=== PATIENT | male | born 1955 | race Caucasian/White ===

== ENCOUNTER 2019-10-28 08:56 | Inpatient (IN) | payer MEDICARE, OTHER, SELFPAY ==
[2019-10-28] VITALS (8 sets, daily range): BP systolic 134–166; BP diastolic 57–72; PULSE 71–96; RESP 16–20; TEMP 36.7–37; O2SAT 97–100
--- NOTE | 2019-10-28 | ECHO_ITS ---
Patient Info Name: Faustino Velásquez Age: 64 years : 1955 Gender: Male Ht: 66 in Wt: 211 lbs BSA: 2.15 m2 HR: 98 bpm BP: 140 / 71 mmHg Heart Rhythm: Sinus Rhythm Technical Quality: Good Exam Date: 10/28/2019 4:25 PM Exam Location: [facility] Pulmonary Exam Room: 315 Patient Status: Inpatient Admit Date: 10/28/2019 Staff Ordering Physician: Susan Otoole NP Punch Machine Operator: Julianna Amaral RCS Attending Provider: Miki Gatica MD Referring Physician: Xiang CENTENO; Exam Type: CA echo doppler w bubble study Study Info Indications - focal weakness Complete two-dimensional, color flow and Doppler transthoracic echocardiogram is performed with agitated saline. Contrast/Agitated Saline Contrast/Ag. Saline: Agitated Saline Amount: 20.00 ml Administered By: Barrett Foss RN Existing IV Access: Yes IV Access Condition: patent with no signs of infiltration Summary 1. Left ventricular systolic function is normal, estimated at >70%. 2. There is upper limits normal left ventricular wall thickness. 3. The left ventricular diastolic function is normal. 4. Right atrial chamber dimension is mildly enlarged. 5. There is no aortic valve stenosis. 6. There is mild mitral valve regurgitation. 7. The mitral valve has thickened leaflets with focal calcification of the anterior leaflet.. 8. There is mild tricuspid valve regurgitation. 9. No pulmonary hypertension, estimated pulmonary arterial systolic pressure is 32 mmHg. 10. No intracardiac shunt with injection of agitated saline with and without Valsalva. Recommendations * Consider transesophageal echocardiogram if clinically indicated. Left Ventricle Left ventricular chamber dimension is normal. Left ventricular systolic function is normal, estimated at >70%. There is upper limits normal left ventricular wall thickness. The left ventricular diastolic function is normal. Right Ventricle Right ventricular chamber dimension is normal. Right ventricular systolic function is normal. Left Atria Left atrial chamber dimension is normal. Right Atria Right atrial chamber dimension is mildly enlarged. Atrial Septum No intracardiac shunt with injection of agitated saline with and without Valsalva. Aortic Valve The aortic valve is not well visualized. There is no aortic valve stenosis. There is trace aortic valve regurgitation. Pulmonic Valve The pulmonic valve is not well visualized. Mitral Valve The mitral valve has thickened leaflets with focal calcification of the anterior leaflet.. There is mild mitral valve regurgitation. The mitral valve annulus is mildly calcified. Tricuspid Valve The tricuspid valve leaflets are normal. There is mild tricuspid valve regurgitation. No pulmonary hypertension, estimated pulmonary arterial systolic pressure is 32 mmHg. Pericardium/Pleural The pericardium appears normal. There is trivial pericardial effusion. Inferior Vena Cava Normal inferior vena cava with >50% collapse upon inspiration consistent with normal right atrial pressure, 5 mmHg. Aorta The aortic root size at the sinus of Valsalva is normal. There is mild aortic atherosclerosis. Left Ventricular Outflow Tract Name Value Normal
--- NOTE | ~2019-10-28 | US_ITS ---
EXAMINATION: US renal BI DATE: 10/28/2019 15:51 INDICATION: Acute kidney injury. TECHNIQUE: Multiple ultrasound grayscale images of the kidneys were obtained. COMPARISON: Lumbar spine MRI 02/15/2013 FINDINGS: The right kidney measures 10.3 x 5.9 x 5.7 cm. The left kidney measures 12.6 x 5.6 x 5.2 cm. The kidn eys demonstrate normal parenchymal echogenicity. There is a 9 mm hypoechoic mass in left kidney. Ther e is no hydronephrosis. The bladder is normal. IMPRESSION: 1. Normal kidney sizes. No hydronephrosis. 2. 9 mm left kidney mass, which may be a cyst or less likely a solid neoplasm. Abdomen CT or MRI with out and with contrast is recommended in 6 months. Reviewed, dictated and finalized at location A. IMPRESSION: 1. Normal kidney sizes. No hydronephrosis. 2. 9 mm left kidney mass, which may be a cyst or less likely a solid neoplasm. Abdomen CT or MRI without and with contrast is recommended in 6 months.
--- NOTE | ~2019-10-28 | US_ITS ---
EXAMINATION: US carotid duplex BI DATE: 10/28/2019 15:54 INDICATION: TIA. Weakness. TECHNIQUE: Grayscale, color Doppler, and pulsed Doppler images of the cervical carotid arteries were obtained. The degree of vessel stenosis is placed in one of the following categories: normal, <50%, 5 0-69%, >=70% but less than near-occlusion, near-occlusion, or total occlusion. Note that percent sten osis relative to normal distal artery lumen diameter is indirectly measured from velocity measurement s as described by Jose, et al. Radiology 2003; 229:340-346. Notes: Normal: Peak systolic velocity <125 centimeters/sec and no plaque <50%. Peak systolic velocity <125 ( EDV <40; ICA/CCA PSV ratio <2.0; used these factors only a tandem lesions or low cardiac output or co ntralateral disease) 50-69 %: PSV 125-230 (EDV 40-100; ratio 2-4) >= 70% but less than near occlusion: PSV greater than 230 (EDV > 100; ratio> 4.0) Near Occlusion: PSV that is variable; markedly narrowed lumen Occlusion: Absent flow on color/spectral Doppler and no lumen on sánchez scale. COMPARISON: None. FINDINGS: RIGHT: The right common carotid artery (CCA) peak systolic velocity (PSV) is 126 cm/s. The right internal ca rotid artery (ICA) PSV is 91 cm/s. The right ICA end-diastolic velocity (EDV) is 22 cm/s. The right I CA/CCA PSV ratio is 0.7. The external carotid artery (ECA) PSV is 135 cm/s. There is antegrade flow i n the right vertebral artery. LEFT: The left CCA PSV is 106 cm/s. The left ICA PSV is 94 cm/s. The left ICA EDV is 22 cm/s. The left ICA/ CCA PSV ratio is 0.9. The ECA PSV is 100 cm/s. There is antegrade flow in the left vertebral artery. IMPRESSION: 1. Less than 50% stenosis in the right internal carotid artery by sonographic criteria. 2. Less than 50% stenosis in the left internal carotid artery by sonographic criteria. Reviewed, dictated and finalized at location A. IMPRESSION: 1. Less than 50% stenosis in the right internal carotid artery by sonographic alka pugh. 2. Less than 50% stenosis in the left internal carotid artery by sonographic ro whittington.
--- NOTE | ~2019-10-28 | MR_ITS ---
EXAMINATION: MR cervical spine wo con DATE: 10/28/2019 15:20 INDICATION: Numbness and tingling in the hand. TECHNIQUE: Magnetic resonance imaging (MRI) of the cervical spine was performed without intravenous c ontrast. Sequences included sagittal T2-weighted FSE, sagittal STIR FSE, sagittal T1-weighted FSE, ax ial MERGE, and axial T2-weighted FSE. COMPARISON: None FINDINGS: Bone alignment is normal. There is mild chronic anterior wedging of T1 vertebral body. Ther e are hemangiomas in C3 and T1. There is mildly decreased disc height at C7-T1. There is increased T2 -weighted signal intensity in the spinal cord on the right at C3-C4. The following disc levels are sp ecifically discussed: C2-C3: The disc does not extend beyond the endplate margin. There is no uncovertebral joint osteoarth ritis. There is mild bilateral facet joint osteoarthritis. There is no neural foraminal stenosis. The re is no central canal stenosis. C3-C4: The disc is bulging. There is mild left uncovertebral joint osteoarthritis. There is mild bila teral facet joint osteoarthritis. There is no neural foraminal stenosis. There is mild central canal stenosis. C4-C5: The disc is bulging. There is mild right uncovertebral joint osteoarthritis. There is mild lef t facet joint osteoarthritis. There is mild bilateral neural foraminal stenosis. There is mild centra l canal stenosis with ventral indentation of the spinal cord. C5-C6: The disc is bulging. There is mild bilateral uncovertebral joint osteoarthritis. There is mild bilateral facet joint osteoarthritis. There is mild bilateral neural foraminal stenosis. There is mo derate central canal stenosis with ventral and dorsal indentation of the spinal cord. C6-C7: The disc is bulging. There is moderate right and mild left uncovertebral joint osteoarthritis. There is mild bilateral facet joint osteoarthritis. There is moderate right and mild left neural for aminal stenosis. There is mild central canal stenosis with ventral indentation of the spinal cord. C7-T1: The disc is bulging. There is mild right and moderate left uncovertebral joint osteoarthritis. There is mild bilateral facet joint osteoarthritis. There is mild left neural foraminal stenosis. Th ere is mild central canal stenosis. IMPRESSION: 1. 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 2. Moderate cervical spondylosis. Reviewed, dictated and finalized at location A.
--- NOTE | ~2019-10-28 | CT_ITS ---
EXAMINATION: CT brain wo con DATE: 10/28/2019 09:45 INDICATION: Left hemiparesis. Slurred speech. TECHNIQUE: Computed tomography (CT) of the head was performed without intravenous contrast. The mA wa s adjusted according to patient size. Iterative reconstruction technique was employed. The dose-lengt h product was 605.33 mGy-cm. COMPARISON: None FINDINGS: There are scattered areas of low attenuation in the cerebral white matter. There is no intr acranial hemorrhage, acute infarction, or abnormal intracranial mass lesion. The ventricles are tenisha l in size. There are likely changes of ocular lens replacement surgeries. The maxillary sinuses are s mall. There is mild mucosal thickening in the ethmoid sinuses. The mastoid air cells are normal. IMPRESSION: 1. Mild nonspecific cerebral white matter disease, which likely represents chronic small vessel ische viviane disease. Reviewed, dictated and finalized at location A. IMPRESSION: 1. Mild nonspecific cerebral white matter disease, which likely represents non destructive evaluation specialist jaci small vessel ischemic disease.
--- NOTE | ~2019-10-28 | MR_ITS ---
EXAMINATION: MR brain/brain stem wo con DATE: 10/28/2019 15:08 INDICATION: Focal weakness. Numbness and tingling in the hand. Transient ischemic attack. TECHNIQUE: Magnetic resonance imaging (MRI) of the brain and brainstem was performed without intraven ous contrast. Sequences included sagittal and axial T1-weighted FSE, axial diffusion-weighted FS EPI, axial T2*-weighted GRE, axial T2-weighted FLAIR Propeller, and axial T2-weighted Propeller. Apparent diffusion coefficient (ADC) maps were created. COMPARISON: Head CT 10/28/2019 FINDINGS: There is no intracranial hemorrhage, acute infarction, or abnormal intracranial mass lesion . There are scattered areas of nonspecific increased T2-weighted signal intensity in the cerebral whi te matter. The ventricles are normal in size. There are likely changes of ocular lens replacement douglas geries. The maxillary sinuses are small. The paranasal sinuses are clear. The mastoid air cells are n ormal. IMPRESSION: 1. Mild nonspecific cerebral white matter disease, which likely represents chronic small vessel ische viviane disease. Reviewed, dictated and finalized at location A. IMPRESSION: 1. Mild nonspecific cerebral white matter disease, which likely represents block handler jaci small vessel ischemic disease.
--- NOTE | 2019-10-28 09:03 | ECG_ITS ---
Measurements Intervals [place] Rate: 67 P: 57 [place]: 156 QRS: 24 QRSD: 104 T: 34 QT: 378 QTc: 400 Interpretive Statements SINUS RHYTHM BORDERLINE R WAVE PROGRESSION, ANTERIOR LEADS BORDERLINE ECG Electronically Signed On 10-28-2019 9:31:51 CDT by Jovanny Mederos D.O.
--- NOTE | 2019-10-28 09:10 | ED.WEAKNESS ---
HPI - Weakness General Chief complaint: Weakness Stated complaint: Weakness Time Seen by Provider: 10/28/19 09:02 History of Present Illness HPI Narrative: Patient presents via EMS with his for left-sided weakness. He woke up this morning and could not use his left arm or his left leg. He was unable to walk to the bathroom. Nothing like this is ever happened to him before. He has a history of hypertension diabetes and hypercholesterolemia. He is recently lost 47 pounds on a keto diet. 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 He spent 3 days out in the sun working on a gazebo and yard work. He has not been sick. He has no pain. He has not yet had his morning medications. He has a history of umbilical hernia, vasectomy, right knee arthroscopy, and 2 cardiac stents. He takes testosterone shots every 2 weeks. Does not smoke, drink alcohol, or do drug. MD Complaint: focal weakness Onset (ago): hour(s) Duration: now resolved Location: LUE and LLE Severity: severe Quality: tingling Exacerbating factors: none Related Data Home Medications Medication Instructions Recorded Confirmed aspirin [[id number]] 10/28/19 atorvastatin 40 mg PO DAILY 10/28/19 10/28/19 carvedilol 25 mg PO Q12H 10/28/19 10/28/19 cyclobenzaprine 10 mg PO HS PRN 10/28/19 10/28/19 glimepiride 2 mg PO DAILY 10/28/19 10/28/19 hydrocodone-acetaminophen 1 tablet PO HS PRN 10/28/19 10/28/19 lisinopril 20 mg PO DAILY 10/28/19 10/28/19 metformin 1,000 mg PO BID 10/28/19 10/28/19 Allergies Allergy/AdvReac Type Severity Reaction Status Date / Time atorvastatin AdvReac Severe Abdominal Verified 10/28/19 09:09 Pain latex AdvReac Itching Verified 10/28/19 09:10 Review of Systems Review of Systems: Narrative: CONSTITUTIONAL: Denies fever, chills, or sweats. EYES: Denies visual changes, redness, or discharge. ENT: Denies rhinorrhea, congestion, sore throat, or otalgia. CARDIOVASCULAR: Denies chest pain, palpitations, or edema. RESPIRATORY: Denies cough or dyspnea. GASTROINTESTINAL: Denies abdominal pain, nausea, vomiting, or diarrhea. GENITOURINARY: Denies dysuria or hematuria. SKIN: Denies rash or itching. MUSCULOSKELETAL: Denies back pain, joint pain, or myalgia. NEUROLOGIC: Denies headache, numbness, or current weakness. PSYCHIATRIC: Denies anxiety or depression. [facility] Past Medical History Medical History (Updated 10/28/19 @ 10:43 by Alice Ordonez MD) Diabetes Hypercholesterolemia Hypertension TIA (transient ischemic attack) Surgical History Surgical History (Updated 10/28/19 @ 09:13 by Alice Ordonez MD) History of arthroscopy of right knee History of heart artery stent History of umbilical hernia repair History of vasectomy Family History Family History (Updated 12/19/13 @ 07:13 by DOCTOR UNKNOWN) Mother Family history of congestive heart failure Other Diabetes mellitus Family history of cardiovascular disease Hypertension Social History Social History (Updated 10/28/19 @ 09:14 by Alice Ordonez MD) Smoking status: Never smoker Alcohol intake: current Substance use: never Gender identity (if verbalized by the patient): Male Exam Narrative: Exam Narrative: GENERAL: Well-appearing, well-nourished, and in no acute distress. Very tanned. Overweight. HEAD: Normocephalic, atraumatic. EYES: PERRLA and EOMI. ENT: Nares clear, no rhinorrhea or epistaxis. Mucous membranes moist. NECK: Supple. CHEST: Clear to auscultation. No respiratory distress. HEART: Regular rate and rhythm. No murmur heard. Normal peripheral pulses. ABDOMEN: Soft, nontender, nondistended, normal active bowel sounds. EXTREMITIES: Normal range of motion. No edema. SKIN: Warm, dry, no rash. NEURO: No focal deficits. Alert and oriented x3. PSYCH: Normal mood and affect. Course Reevaluation(s) Reevaluation #1: Went back to the room and told the patient and his that the head CAT scan came out fine. But I did have to te
[2019-10-28] MEDS: SODIUM CHLORIDE 0.9% IV 1,000 ML 999 ML IV CONT (09:15)
[2019-10-28 09:35] LABS: Basophils Percent Auto 0.4 % (0.2-1.2); Eosinophils Absolute Auto 0.1 K/mm3 (0-0.3); Eosinophils Percent Auto 1.5 % (0-4.4); Hematocrit 45.2 % (42.0-52.0); Immature Granulocyte Absolute 0.02 K/mm3 (0.00-0.031); Immature Granulocyte Percent A 0.2 % (0-0.5); Lymphocytes Absolute Auto 1.14 K/mm3 (0.9-3.2); Lymphocytes Percent Auto 12.8 % (18.3-44.2); Mean Corpuscular HGB Conc 33.2 g/dl (32-36); Mean Corpuscular Hemoglobin 30.7 pg (26-34); Mean Corpuscular Volume 92.4 fl (80-100); Mean Platelet Volume 10.3 fl (7.4-10.4); Monocytes Absolute Auto 0.8 K/mm3 (0.1-0.6); Monocytes Percent Auto 8.6 % (2.6-8.5); Neutrophils Absolute Auto 6.8 K/mm3 (1.3-6.7); Neutrophils Percent Auto 76.5 % (45.5-73.1); Platelet Count Result 276 k/mm3 (150-375); Red Blood Count 4.89 M/mm3 (4.6-6.20); Red Cell Distribution Width 14.6 % (11.5-14.5); White Blood Count 8.9 K/mm3 (4.5-10.0)
[2019-10-28 09:40] LABS: Estimated CRCL calculation 15 ml/min; Estimated Glomerular Filt Rate 12
[2019-10-28 09:44] LABS: INR 0.9; Prothrombin Time 12.2 Seconds (11.1-14.7)
[2019-10-28 09:47] LABS: Alanine Aminotransferase 20 U/L (4-50); Albumin Level 4.5 g/dL (3.5-5.1); Alkaline Phosphatase 113 U/L (38-126); Aspartate Amino Transferase 23 U/L (17-59); Bilirubin,Total 0.5 mg/dL (0.2-1.3); Blood Urea Nitrogen 80 mg/dL (9-20); Calcium 8.8 mg/dL (8.4-10.2); Carbon Dioxide 27 mmol/L (22-30); Chloride 95 mmol/L (98-107); Estimated CRCL calculation 14 ml/min; Estimated Glomerular Filt Rate 11; Glucose 134 mg/dL (75-110); Potassium 4.6 mmol/L (3.4-5.0); Sodium 134 mmol/L (137-145)
[2019-10-28 09:58] LABS: Troponin I < 0.012 ng/mL (0.000-0.034)
[2019-10-28] MEDS: ASPIRIN 81 MG CHEWABLE TABLET 324 MG PO (10:07)
[2019-10-28 11:07] LABS: Creatine Kinase 81 U/L (55-170)
--- NOTE | 2019-10-28 11:49 | PC.NURSE ---
Called to give report and nurse states that she hasn't had time to look at SBAR because she was giving blood. Will call me back when she looks over SBAR
[2019-10-28 11:58] LABS: Add Urine Microscopic? NO; Appearance Urine Clear (Clear); Bacteria Urine Trace /hpf; Bilirubin Urine Negative (Negative); Blood Urine Negative (Negative); Color Urine Straw (Yellow); Glucose Urine UA Negative (Negative); Ketones Urine Negative (Negative); Leukocyte Esterase Ur Negative LEU/UL (Negative); Mucus Urine Rare /lpf; Nitrate Urine Negative (Negative); Protein Urine Negative (Negative); RBC Urine 0-2 /hpf (0-2); Specific Grav Ur 1.009 (1.001-1.035); Urobilinogen Urine Negative mg/dL (<2.0); WBC Urine 0-3 /hpf
[2019-10-28 12:54] LABS: Troponin I < 0.012 ng/mL (0.000-0.034)
--- NOTE | 2019-10-28 13:25 | PM.IMHP ---
H&P: HPI History of Present Illness Chief complaint: TIA/and acute renal failure Narrative: Faustino Velásquez is a 64 year old male has a history of diabetes and hypertension. 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 The patient is on a keto diet and says that he drinks 100 oz of water every day. He stated that he did feel little bit dizzy yesterday thought that maybe he was getting dehydrated so he drink Gatorade. His no previous kidney issues. He states that his blood pressure and blood sugars are under control. He also stated that he has sleep apnea and has been using his CPAP machine. He lost approximately 47 lb on the keto diet. Is taking him a year to lose this weight. He has had to have an adjustment on his CPAP machine. The patient stated that he woke up during the night was diaphoretic and wiped himself often went back to sleep on the couch. When he woke up this morning he stated that his left arm and left leg were flaccid. The patient stated that he fell 2 times trying to get off the character go to his in the bedroom. He did not have any slurred speech or facial droop. The patient stated that he typically takes an aspirin but did not take 1 this morning. He has not taken any of his a.m. meds. Patient's symptoms resolved when he came to the hospital. He is now back at his baseline. His some difficulty speaking or swallowing. He can now move all extremities and walks without difficulty. CT of the brain was read as mild nonspecific cerebral white matter disease, which likely represents chronic small vessel ischemic disease. Patient's sodium was 134. His creatinine 5.0 GFR is 15 BUN is 80. Neurology and nephrology have been consulted. Patient also mentioned that he has had problems at night with some numbness and tingling to his hands and has not been checked for carpal tunnel syndrome or any problems with his neck to RO he does have chronic lower back pain. Date of service 10/28/2019 Review of Systems Review of Systems: All systems reviewed & are unremarkable except as noted in HPI and below Constitutional: Constitutional: Reports as per HPI and Reports no additional constitutional complaints Eyes: Eyes: Reports as per HPI and Reports no additional eye complaints ENT: Reports system reviewed and no additional complaints, except as documented and Reports Normal hearing present Cardiovascular: Cardiovascular: Reports no additional cardiovascular complaints Respiratory: Respiratory: Reports no additional respiratory complaints and Reports no additional respiratory complaints Gastrointestinal: Gastrointestinal: Reports as per HPI and Reports no additional gastrointestinal complaints Musculoskeletal: Musculoskeletal: Reports no additional musculoskeletal complaints Integumentary/Breasts: Skin/Breast: Reports system reviewed and no additional complaints, except as docu and Reports as per HPI Neurologic: Reports system reviewed and no additional complaints, except as documented, Reports as per HPI and Reports Normal hearing present Psychiatric: Psychiatric: Reports no additional psychiatric complaints and Reports as per HPI Endocrine: Endocrine: Reports no additional endocrine complaints Hematologic/Lymphatic: Hematologic/Lymphatic: Reports no additional hematologic/lymphatic complaints Allergic/Immunologic: Allergic/Immunologic: Reports no additional allergic/immunologic complaints [facility] Past Medical History Medical History (Updated 10/28/19 @ 13:37 by Susan Otoole NP) Diabetes Hypercholesterolemia Hypertension STACEY on CPAP TIA (transient ischemic attack) Surgical History Surgical History (Updated 10/28/19 @ 13:42 by Susan Otoole NP) H/O bilateral cataract extraction One I approximately 2-3 years ago and the other eye in February of last year. History of arthroscopy of right knee History of heart artery stent X2 History of umbilical hernia repair History of vas
[2019-10-28 14:59] LABS: Collection Time Urine 24 HOURS
[2019-10-28 15:09] LABS: Urine Cotinine NEGATIVE
[2019-10-28 15:11] LABS: Patient Weight 211 Lbs
[2019-10-28 15:18] LABS: Potassium Urine Random 9.9 meq/L; Sodium Urine Random 26 meq/L
[2019-10-28] MEDS: SODIUM CHLORIDE 0.9% IV 1,000 ML 125 ML IV CONT (15:56)
[2019-10-28] MEDS: carvediloL 25 MG TABLET PO ×2 (15:56→20:53)
--- NOTE | 2019-10-28 17:28 | PM.CNNEP ---
Assessment and Plan Assessment and plan (1) Acute renal failure: Qualifiers: Acute renal failure type: unspecified Qualified Code(s): N17.9 - Acute kidney failure, unspecified Code(s): N17.9 - Acute kidney failure, unspecified Status: Acute Assessment and Plan: The patient has acute kidney injury. He sees his doctor frequently and has never been told of kidney problem so I am assuming that his baseline creatinine is near normal. Ultrasound shows no hydronephrosis. There is some sort of a ?mass? which may be a cyst. Will get MRI down the line. Urine electrolytes are pending. Urinalysis is benign. Most likely this is dehydration. There other causes of kidney failure as well. Normal CK rules out rhabdomyolysis. Glomerulonephritis or interstitial nephritis or possible but unlikely in this scenario. We will see how he does with the fluids. (2) TIA (transient ischemic attack): Code(s): G45.9 - Transient cerebral ischemic attack, unspecified Status: Acute Assessment and Plan: Patient had weakness on the left side. Carotid Dopplers are negative. Brain MRI is unremarkable except small vessel disease. Await echocardiogram. (3) Diabetes: Code(s): E11.9 - Type 2 diabetes mellitus without complications Status: Acute Assessment and Plan: He has borderline diabetes. Follow blood sugars. (4) Hypertension: Qualifiers: Hypertension type: unspecified Qualified Code(s): I10 - Essential (primary) hypertension Code(s): I10 - Essential (primary) hypertension Status: Acute Assessment and Plan: Blood pressure was relatively high on admission. We will get him back on his medications and see how it looks. (5) STACEY on CPAP: Code(s): G47.33 - Obstructive sleep apnea (adult) (pediatric); Z99.89 - Dependence on other enabling machines and devices Status: Chronic Assessment and Plan: He uses a CPAP machine at home. History of Present Illness Reason for Consult Consult date: 10/28/19 Chief Complaint Chief complaint: TIA/and acute renal failure History of Present Illness Narrative: Faustino is a very pleasant 64-year-old gentleman who has a history of borderline diabetes, hypertension, coronary disease status post stents, hyperlipidemia, sleep apnea on CPAP. The patient has had a busy 4 days. 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 He says that he had some lightheadedness when he would bend over and stand up on Monday. Yesterday the patient felt a little bit worse. Today the patient woke up in could not move his left side. He was very weak. The patient called his and son and they helped him to get up. Then they called 911 and brought him to the emergency room. In the ER he was evaluated and found to have a high BUN creatinine so he was admitted given IV fluids and renal consultation was requested. After received some IV fluids in the ambulance, by the time he got to the emergency room, his weakness was better any felt better. Patient has no past history of kidney disease. No bloody urine, foamy urine, kidney stones, or bladder infections. He has never been told of proteinuria or other kidney elements when being followed for his current medical issues. Review of Systems Constitutional: Constitutional: Reports no additional constitutional complaints Eyes: Eyes: Reports no additional eye complaints ENT: Reports system reviewed and no additional complaints, except as documented Cardiovascular: Cardiovascular: Reports no additional cardiovascular complaints Respiratory: Respiratory: Reports no additional respiratory complaints Gastrointestinal: Gastrointestinal: Reports no additional gastrointestinal complaints Genitourinary: Genitourinary: Reports no additional male
[2019-10-28 17:58] LABS: Glucose Point of Care 54 (65-105)
[2019-10-28 17:58] LABS: Glucose Point of Care 92 (65-105)
[2019-10-29] VITALS (12 sets, daily range): BP systolic 130–157; BP diastolic 63–75; PULSE 56–79; RESP 18–20; TEMP 36.4–36.9; O2SAT 95–100
[2019-10-29] MEDS: SODIUM CHLORIDE 0.9% IV 1,000 ML 125 ML IV CONT ×3 (00:03→17:37)
[2019-10-29 00:31] LABS: Glucose Point of Care 127 (65-105)
[2019-10-29 06:31] LABS: Basophils Absolute Auto 0.1 K/mm3 (0.0-0.1); Basophils Percent Auto 0.7 % (0.2-1.2); Eosinophils Absolute Auto 0.2 K/mm3 (0-0.3); Eosinophils Percent Auto 2.2 % (0-4.4); Hematocrit 41.4 % (42.0-52.0); Hemoglobin 13.4 g/dL (14.0-18.0); Immature Granulocyte Absolute 0.02 K/mm3 (0.00-0.031); Immature Granulocyte Percent A 0.3 % (0-0.5); Lymphocytes Absolute Auto 1.96 K/mm3 (0.9-3.2); Lymphocytes Percent Auto 28.4 % (18.3-44.2); Mean Corpuscular HGB Conc 32.4 g/dl (32-36); Mean Corpuscular Hemoglobin 30.3 pg (26-34); Mean Corpuscular Volume 93.7 fl (80-100); Mean Platelet Volume 9.9 fl (7.4-10.4); Monocytes Absolute Auto 0.8 K/mm3 (0.1-0.6); Neutrophils Percent Auto 57.4 % (45.5-73.1); Platelet Count Result 277 k/mm3 (150-375); Red Blood Count 4.42 M/mm3 (4.6-6.20); White Blood Count 6.9 K/mm3 (4.5-10.0)
[2019-10-29 06:40] LABS: Hemoglobin A1C 5.5 % (<5.7)
[2019-10-29 06:59] LABS: Alanine Aminotransferase 17 U/L (4-50); Alkaline Phosphatase 91 U/L (38-126); Aspartate Amino Transferase 19 U/L (17-59); Bilirubin,Total 0.4 mg/dL (0.2-1.3); Blood Urea Nitrogen 68 mg/dL (9-20); CRP < 0.5 mg/dL (<1.0); Calcium 8.4 mg/dL (8.4-10.2); Carbon Dioxide 26 mmol/L (22-30); Chloride 104 mmol/L (98-107); Estimated CRCL calculation 19 ml/min; Estimated Glomerular Filt Rate 16; Glucose 100 mg/dL (75-110); Magnesium 2.2 mg/dL (1.6-2.3); Phosphorus 3.8 mg/dL (2.5-4.5); Potassium 4.4 mmol/L (3.4-5.0); Sodium 139 mmol/L (137-145)
[2019-10-29 08:30] LABS: Glucose Point of Care 97 (65-105)
[2019-10-29] MEDS: ASPIRIN 81 MG ENTERIC TABLET BY MOUTH (09:03)
[2019-10-29] MEDS: GLIMEPIRIDE 2 MG TABLET PO (09:05)
--- NOTE | 2019-10-29 09:55 | PM.PNNEP ---
Progress Note: A&P Assessment and Plan (1) Acute renal failure: Qualifiers: Acute renal failure type: unspecified Qualified Code(s): N17.9 - Acute kidney failure, unspecified Code(s): N17.9 - Acute kidney failure, unspecified Status: Acute Assessment and Plan: The patient has acute kidney injury. It looks like it was caused by dehydration. His creatinine is better with fluids Continue IV fluids for 1 more day. (2) TIA (transient ischemic attack): Code(s): G45.9 - Transient cerebral ischemic attack, unspecified Status: Acute Assessment and Plan: Patient had weakness on the left side. Carotid Dopplers are negative. Brain MRI is unremarkable except small vessel disease. Await echocardiogram. (3) Diabetes: Code(s): E11.9 - Type 2 diabetes mellitus without complications Status: Acute Assessment and Plan: He has borderline diabetes. Following blood sugars. (4) Hypertension: Qualifiers: Hypertension type: unspecified Qualified Code(s): I10 - Essential (primary) hypertension Code(s): I10 - Essential (primary) hypertension Status: Acute Assessment and Plan: Blood pressure much better today. (5) STACEY on CPAP: Code(s): G47.33 - Obstructive sleep apnea (adult) (pediatric); Z99.89 - Dependence on other enabling machines and devices Status: Chronic Assessment and Plan: He uses a CPAP machine at home. Subjective Date/time seen: 10/29/19 09:55 Interval history: Patient is alert. He feels much better. Review of Systems Cardiovascular: Cardiovascular: Reports no additional cardiovascular complaints Respiratory: Respiratory: Reports no additional respiratory complaints Gastrointestinal: Gastrointestinal: Reports no additional gastrointestinal complaints Genitourinary: Genitourinary: Reports no additional male genitourinary complaints Exam Narrative: Exam Narrative: WDWN in NAD skin no rash head ncat lungs clear cor reg no rub abd BS+ nontender and soft ext no edema. Objective Data Vital Signs Vital Signs: Vital Signs - 24 hr 10/28/19 11:16 10/28/19 12:02 10/28/19 12:56 Temperature 36.8 C Pulse Rate 71 74 74 Respiratory Rate 16 18 20 Blood Pressure 165/72 H 165/72 H 140/71 Pulse Oximetry 100 100 100 10/28/19 15:56 10/28/19 20:00 07/06/20 20:53 Temperature Pulse Rate 76 80 76 Respiratory Rate Blood Pressure Pulse Oximetry 10/28/19 22:00 10/29/19 00:00 10/29/19 04:00 Temperature 36.7 C Pulse Rate 76 67 56 L Respiratory Rate 18 Blood Pressure 134/57 L Pulse Oximetry 97 10/29/19 06:00 Temperature 36.6 C Pulse Rate 61 Respiratory Rate 18 Blood Pressure 130/64 Pulse Oximetry 99 Intake/Output Intake/Output: Intake & Output 10/26/19 10/27/19 10/28/19 10/29/19 23:59 23:59 23:59 23:59 Intake Total 2830 1250 Output Total 900 1050 Balance 1930 200 Meds/Results Medications: Active Medications Generic Name Dose Route Start Last Admin Trade Name Freq PRN Reason Stop Dose Admin Acetaminophen 650 mg 10/28/19 10:58 Tylenol Tablet PO Q4H PRN Mild Pain (1-3) or Fever Hydrocodone Bitart/Acetaminophen 1 tab 10/28/19 13:15 10/28/19 21:03 [place] 7.5-325 Mg PO 1 tab HS PRN Administration Pain (Scale Score 7-10) Aspirin 81 mg 10/29/19 09:00 10/29/19 09:03 Aspirin Ec BY MOUTH 81 mg DAILY MELANIE Administration Atorvastatin Calcium 40 mg 10/29/19 09:00 Lipitor PO DAILY [facility] Carvedilol 25 mg 10/28/19 13:15 10/28/19 20:53 Coreg PO 25 mg Q12HR MELANIE Administration Dextrose 12.5 gm 10/28/19 13:18 Dextrose 50% Syringe IV PUSH PRN PRN Hypoglycemia Protocol Glimepiride 2 mg 10/29/19 08:00 10/29/19 09:05 Amaryl PO 2 mg DAILY@0800 MELANIE Administration Glucagon 1 mg 10/28/19 13:18 Glucagon For Inj IM PRN PRN Hypoglycemia P
[2019-10-29] MEDS: carvediloL 25 MG TABLET PO ×2 (10:01→20:35)
[2019-10-29 12:22] LABS: Glucose Point of Care 151 (65-105)
--- NOTE | 2019-10-29 12:56 | CONS_ITS ---
DATE OF CONSULTATION: 10/28/2019 HISTORY OF PRESENT ILLNESS: A 64-year-old has been admitted to [facility] through the emergency room for possible TIA with acute renal failure. The patient had been working outside moving the lawn started feeling dizzy the day before he came to the emergency room. He is thinking he trying keto diet and lost about 47 pounds. He woke up at night went back to sleep in the cot. When he woke up in the morning, his left arm and left lower extremity were flaccid. He fell twice facial droop. Normally he takes one aspirin everyday, the symptom resolved by the time he came to the hospital though he was having some difficulty in speaking and swallowing. He was able to move all the extremities well. Initial CT scan in the emergency room was normal except stable white matter disease secondary to chronic small-vessel disease. He was also found to be hyponatremic with creatinine of 5.0, GFR 15, BUN of 80. The patient has ongoing history of diabetes mellitus, hypercholesterolemia, hypertension, obstructive sleep apnea with CPAP on and history of TIA in the past. He has also undergone bilateral cataract extraction, arthroscopy of the right knee, heart surgery with stent x2, umbilical hernia repair and vasectomy. He is a never smoker, never drinker. MEDICATIONS: At the time of admission to the hospital, he was takin. Aspirin 81 mg daily. 2. Atorvastatin 40 mg daily. 3. Carvedilol 25 mg q.12h. 4. Flexeril 10 mg h.s. p.r.n. 5. Glimepiride 2 mg daily. 6. Hydrocodone with Tylenol p.r.n. 7. Lisinopril 20 mg daily. 8. Metformin 1000 mg twice a day. ALLERGIES: HE IS ALLERGIC TO ATORVASTATIN AND LATEX. PHYSICAL EXAMINATION: VITAL SIGNS: Evaluation documented him to be afebrile with pulse of 96, respirations 18, blood pressure 166/63, pulse ox 99%. HEENT: Head normocephalic with no cranial bruit. Ear, nose, throat examination normal. NECK: Supple with no cervical bruit. No thyromegaly. No lymphadenopathy. HEART: Regular with no murmur. LUNGS: Clear to auscultation with no rhonchi. ABDOMEN: Soft with no organomegaly. NEUROLOGICAL: He is awake, alert, cooperative. His speech not dysphasic, not dysarthric, not dysphonic. Pupils round, regular. Turner of vision full. Extraocular movements full. Face symmetrical. Tongue midline. Motor examination revealed him to have no drift of 1 side or other side. Tone normal and symmetrical. Reflexes symmetrical. Plantars downgoing. LABORATORY DATA: Evaluation up until now as mentioned above. CBC with WBC 8.9, hemoglobin 15.0, platelet count 276. Basic metabolic panel with a creatinine of 5.10 and BUN of 80, glucose 134, otherwise electrolytes normal. Troponin less than 0.012 x2. Hepatic enzymes normal. UA negative. CT scan of the head negative. The patient was admitted to the hospital with diagnosis of TIA in addition to renal insufficiency on the acute basis. At this stage, he reports that his symptoms are completely cleared and feeling much better. He had a renal ultrasound done because of the abnormal BUN and creatinine, which revealed normal renal sizes with no hydronephrosis. There was 2.9 mm left kidney mass, which may be cyst or less likely solid neoplasm for which CT or the MRI has been recommended, which will be followed through Doppler carotid study has also been done, which revealed less than 50% stenosis bilaterally. Cervical spine MRI is with moderate cervical spondylosis and mild at C3-4 secondary to mild central canal stenosis and at C4-5 level, there is a ventral indentation of the spinal cord obtained because of the osteoarthritis and bilateral neural foraminal stenosis as well. At C5-6, indentation is also noted. Brain MRI is negative. At this stage, me
--- NOTE | 2019-10-29 14:44 | PM.IMPN ---
Progress Note: A&P Assessment and Plan (1) TIA (transient ischemic attack): Code(s): G45.9 - Transient cerebral ischemic attack, unspecified Status: Acute Assessment and Plan: Patient's neuro checks are within normal limits. Neurology has been consulted. Continue with workup for CVA. MRI of the brain and echo and carotids. Patient states that he has numbness and tingling to his hands especially at night. I will check his B12 level could be neuropathy from his diabetes as well. MRI of the cervical spine as well. Patient had a flaccid left arm and left leg this a.m. he was outside of the window for any tPA. However he is back to his baseline. He will not need any speech therapy or physical therapy at this time. 10/29/19 14:44 Patient is 64-year-old male with history of diabetes hypertension hyperlipidemia he is retired has been working outside [employer] during the summertime as well as [employer] work patient states that he has been working hours and not drinking enough fluids however presented emergency department with a complaint of right in upper lower extremity weakness and difficulty with ambulation, however patient's symptoms were transient in nature and resolved by the time patient was at the ER, to further evaluate patient had a MRI of the brain which is essentially normal as well as carotid ultrasound did not show any stenosis suggesting TIA however patient had MRI of the cervical spine tests concern cervical arthritis, will have a PT OT evaluate the patient and patient is seen by neurologist, upon arrival to the emergency depart patient BUN was 80 and creatinine 5.1 suggesting acute renal failure with severe dehydration, bilateral kidney ultrasound did not show any hydronephrosis or atrophy, patient is seen by production technologist suspect dehydration patient is being hydrated kidney function is improving will continue to monitor, patient also states that he has been dieting on keto diet and has lost 47 lb recently. (2) Acute renal failure: Qualifiers: Acute renal failure type: unspecified Qualified Code(s): N17.9 - Acute kidney failure, unspecified Code(s): N17.9 - Acute kidney failure, unspecified Status: Acute Assessment and Plan: The patient stated that he has been on a keto diet. I did order renal ultrasound and some urine specimens. Continue with IV fluids and recheck BMP tomorrow. Hold metformin and lisinopril. (3) Dehydration: Code(s): E86.0 - Dehydration Status: Acute Assessment and Plan: Continue to hydrate. (4) Hypercholesterolemia: Code(s): E78.00 - Pure hypercholesterolemia, unspecified Status: Acute Assessment and Plan: Continue with atorvastatin (5) Diabetes: Code(s): E11.9 - Type 2 diabetes mellitus without complications Status: Acute Assessment and Plan: Continue with Accu-Cheks AC and HS. Continue with glimepiride and hold metformin. (6) Hypertension: Qualifiers: Hypertension type: unspecified Qualified Code(s): I10 - Essential (primary) hypertension Code(s): I10 - Essential (primary) hypertension Status: Acute Assessment and Plan: P.r.n. hydralazine and continue with Coreg. (7) STACEY on CPAP: Code(s): G47.33 - Obstructive sleep apnea (adult) (pediatric); Z99.89 - Dependence on other enabling machines and devices Status: Chronic Assessment and Plan: I did order for the patient to have CPAP but his is going to bring his intense is more comfortable for him. Subjective Date/time seen: 10/29/19 14:44 Patient is 64-year-old male with history of diabetes hypertension hyperlipidemia he is retired has been working outside [employer] during the summertime as well as [employer] work patient states that he has been working hours and not drinking enough fluids however presented emergency department with a complaint of right in upper lower extremity weakness and difficulty with ambu
[2019-10-29 16:55] LABS: Creatinine Urine 72.7 mg/dL
[2019-10-29 17:45] LABS: Glucose Point of Care 76 (65-105)
[2019-10-29 20:19] LABS: Creatinine Clearance Urine 26.6 ml/min (75-125); Total Volume 24 Hour Urine 3100 ml
[2019-10-30] VITALS: PULSE 54
[2019-10-30 00:07] LABS: Glucose Point of Care 137 (65-105)
[2019-10-30] MEDS: SODIUM CHLORIDE 0.9% IV 1,000 ML 125 ML IV CONT (02:02)
[2019-10-30 04:00] VITALS: PULSE 56
[2019-10-30 06:00] VITALS: BP 153/65; PULSE 60; RESP 20; TEMP 36.6; O2SAT 99
[2019-10-30 06:16] LABS: Hematocrit 38.4 % (42.0-52.0); Hemoglobin 12.5 g/dL (14.0-18.0); Mean Corpuscular HGB Conc 32.6 g/dl (32-36); Mean Corpuscular Hemoglobin 30.8 pg (26-34); Mean Corpuscular Volume 94.6 fl (80-100); Mean Platelet Volume 10.9 fl (7.4-10.4); Platelet Count Result 246 k/mm3 (150-375); Red Blood Count 4.06 M/mm3 (4.6-6.20); White Blood Count 7.7 K/mm3 (4.5-10.0)
[2019-10-30 06:44] LABS: Albumin Level 3.6 g/dL (3.5-5.1); Blood Urea Nitrogen 44 mg/dL (9-20); Calcium 8.2 mg/dL (8.4-10.2); Carbon Dioxide 23 mmol/L (22-30); Chloride 109 mmol/L (98-107); Estimated CRCL calculation 36 ml/min; Estimated Glomerular Filt Rate 34; Glucose 112 mg/dL (75-110); Potassium 4.2 mmol/L (3.4-5.0); Sodium 139 mmol/L (137-145)
[2019-10-30 08:00] VITALS: PULSE 60; PULSE 64; RESP 20; O2SAT 99
[2019-10-30] MEDS: ATORVASTATIN 40 MG TABLET PO (08:06)
[2019-10-30] MEDS: carvediloL 25 MG TABLET PO (08:11)
[2019-10-30] MEDS: GLIMEPIRIDE 2 MG TABLET PO (08:11)
[2019-10-30] MEDS: ASPIRIN 81 MG ENTERIC TABLET BY MOUTH (08:12)
[2019-10-30 09:31] LABS: Glucose Point of Care 115 (65-105)
[2019-10-30 12:00] VITALS: PULSE 53
[2019-10-30 12:54] LABS: Glucose Point of Care 160 (65-105)
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
--- NOTE | 2019-10-30 13:48 | WPDNEURCNPN ---
Assessment and Plan Assessment and plan (1) STACEY on CPAP: Code(s): G47.33 - Obstructive sleep apnea (adult) (pediatric); Z99.89 - Dependence on other enabling machines and devices Status: Chronic (2) Dehydration: Code(s): E86.0 - Dehydration Status: Acute (3) Acute renal failure: Qualifiers: Acute renal failure type: unspecified Qualified Code(s): N17.9 - Acute kidney failure, unspecified Code(s): N17.9 - Acute kidney failure, unspecified Status: Acute (4) Hypertension: Qualifiers: Hypertension type: unspecified Qualified Code(s): I10 - Essential (primary) hypertension Code(s): I10 - Essential (primary) hypertension Status: Acute (5) Hypercholesterolemia: Code(s): E78.00 - Pure hypercholesterolemia, unspecified Status: Acute (6) Peripheral neuropathy: Code(s): G62.9 - Polyneuropathy, unspecified Status: Acute (7) Cervical spondylosis: Code(s): M47.812 - Spondylosis without myelopathy or radiculopathy, cervical region Status: Acute (8) Diabetes: Code(s): E11.9 - Type 2 diabetes mellitus without complications Status: Acute (9) Carpal tunnel syndrome: Code(s): G56.00 - Carpal tunnel syndrome, unspecified upper limb Status: Acute Additional Plan patient's neurological exam fairly decent and essentially normal but on MRI he does have evidence of cervical spondylosis and T2 hyperintensity at C3-C4 with multiple bulging discs and for that will need to have a neurosurgical opinion as an outpatient patient will also need an EMG nerve conduction study to document whether he has carpal tunnel syndrome superimposed on the peripheral neuropathy or not he can be safely discharged at the discretion of the hospitalist I will be happy to follow in my office and will make arrangement for him to see a neurosurgeon for his MRI cervical spine findings Consult date: 10/30/19 Time Seen: 13:00 HPI: Faustino Velásquez is a 64 year old male who is right-handed was admitted with the possibility of TIA and acute renal failure. The patient's is back to his baseline except the paresthesias in his hands which have been present at least for several weeks he denies any neck pain or discomfort he denies any radicular pain from his neck down the brain MRI is negative however the cervical MRI does show evidence of myelopathy at C3 and 4 and patient knows that he has some neck issues and symptoms came on after he was working in the heat is basically does not have any focal lateralizing deficit denies any headache nausea vomiting chest pain or shortness of breath fever chills or sore throat Review of Systems Review of Systems: All systems reviewed & are unremarkable except as noted in HPI and below PMFSH Past Medical History Medical History Diabetes Hypercholesterolemia Hypertension STACEY on CPAP TIA (transient ischemic attack) Surgical History Surgical History H/O bilateral cataract extraction One I approximately 2-3 years ago and the other eye in February of last year. History of arthroscopy of right knee History of heart artery stent X2 History of umbilical hernia repair History of vasectomy Family History Family History Mother Family history of congestive heart failure Diabetes mellitus Heart disease Hypertension Father Dementia Sibling Sudden Other Family history of cardiovascular disease Social History Social History Social History: The patient is to [place] and he desires to have her is a durable power business attorney for healthcare. He has a set of twin boys. He wishes to be a full code. 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 The patient stated he tried smoking wants but did continue to smo
--- NOTE | 2019-10-30 13:56 | PM.PNNEP ---
Progress Note: A&P Assessment and Plan (1) Acute renal failure: Qualifiers: Acute renal failure type: unspecified Qualified Code(s): N17.9 - Acute kidney failure, unspecified Code(s): N17.9 - Acute kidney failure, unspecified Status: Acute Assessment and Plan: The patient has acute kidney injury. Ultrasound shows no acute finding. He will need to get a follow-up of that 9mm left kidney ?mass? Most likely from dehydration. He has been getting IV fluids. His creatinine has come down to 2.0. (2) TIA (transient ischemic attack): Code(s): G45.9 - Transient cerebral ischemic attack, unspecified Status: Acute Assessment and Plan: Patient had weakness on the left side. Carotid Dopplers are negative. Brain MRI is unremarkable except small vessel disease. Echocardiogram is normal (3) Diabetes: Code(s): E11.9 - Type 2 diabetes mellitus without complications Status: Acute Assessment and Plan: He has borderline diabetes. Following blood sugars. (4) Hypertension: Qualifiers: Hypertension type: unspecified Qualified Code(s): I10 - Essential (primary) hypertension Code(s): I10 - Essential (primary) hypertension Status: Acute Assessment and Plan: Blood pressure much better today. (5) STACEY on CPAP: Code(s): G47.33 - Obstructive sleep apnea (adult) (pediatric); Z99.89 - Dependence on other enabling machines and devices Status: Chronic Assessment and Plan: He uses a CPAP machine at home. Subjective Date/time seen: 10/30/19 13:56 Interval history: Patient is alert. He is up in a chair eating. Feels okay up and around. He is eager for discharge Review of Systems Cardiovascular: Cardiovascular: Reports no additional cardiovascular complaints Respiratory: Respiratory: Reports no additional respiratory complaints Gastrointestinal: Gastrointestinal: Reports no additional gastrointestinal complaints Genitourinary: Genitourinary: Reports no additional male genitourinary complaints Exam Narrative: Exam Narrative: WDWN in NAD skin no rash head ncat lungs clear cor reg no rub abd BS+ nontender and soft ext no edema. Objective Data Vital Signs Vital Signs: Vital Signs - 24 hr 10/29/19 14:00 10/29/19 16:00 10/29/19 20:00 Temperature 36.4 C Pulse Rate 64 56 L 66 Respiratory Rate 18 Blood Pressure 139/70 Pulse Oximetry 99 10/29/19 20:35 10/29/19 20:39 10/29/19 22:00 Temperature 36.9 C 36.7 C Pulse Rate 57 L 57 L 60 Respiratory Rate 18 20 Blood Pressure 157/75 H 150/63 H Pulse Oximetry 95 100 10/30/19 00:00 10/30/19 04:00 10/30/19 06:00 Temperature 36.6 C Pulse Rate 54 L 56 L 60 Respiratory Rate 20 Blood Pressure 153/65 H Pulse Oximetry 99 10/30/19 08:00 Temperature Pulse Rate 60 Respiratory Rate 20 Blood Pressure Pulse Oximetry 99 Intake/Output Intake/Output: Intake & Output 10/27/19 10/28/19 10/29/19 10/30/19 23:59 23:59 23:59 23:59 Intake Total 2830 4070 1440 Output Total 900 2350 500 Balance 1930 1720 940 Meds/Results Medications: Active Medications Generic Name Dose Route Start Last Admin Trade Name Freq PRN Reason Stop Dose Admin Acetaminophen 650 mg 10/28/19 10:58 Tylenol Tablet PO Q4H PRN Mild Pain (1-3) or Fever Hydrocodone Bitart/Acetaminophen 1 tab 10/28/19 13:15 10/28/19 21:03 [place] 7.5-325 Mg PO 1 tab HS PRN Administration Pain (Scale Score 7-10) Aspirin 81 mg 10/29/19 09:00 10/30/19 08:12 Aspirin Ec BY MOUTH 81 mg DAILY MELANIE Administration Atorvastatin Calcium 40 mg 10/29/19 09:00 10/30/19 08:06 Lipitor PO 40 mg DAILY MELANIE Administration Carvedilol 25 mg 10/28/19 13:15 10/30/19 08:11 Coreg PO 25 mg Q12HR MELANIE Administration Dextrose 12.5 gm 10/28/19 13:18 Dextrose 50% Syringe IV PUSH PRN PRN Hypoglycemia Protoc
[2019-10-30 14:00] VITALS: BP 157/77; PULSE 57; RESP 16; TEMP 36.6; O2SAT 100
--- NOTE | 2019-10-30 14:34 | PM.DS ---
DS: Admitting Diagnosis Admitting Diagnosis Admitting Diagnosis: Transient cerebral ischemic attack, unspecified DS: Discharge Diagnosis Discharge Diagnosis (1) TIA (transient ischemic attack): Code(s): G45.9 - Transient cerebral ischemic attack, unspecified Status: Acute Assessment and Plan: Patient's neuro checks are within normal limits. Neurology has been consulted. Continue with workup for CVA. MRI of the brain and echo and carotids. Patient states that he has numbness and tingling to his hands especially at night. I will check his B12 level could be neuropathy from his diabetes as well. MRI of the cervical spine as well. Patient had a flaccid left arm and left leg this a.m. he was outside of the window for any tPA. However he is back to his baseline. He will not need any speech therapy or physical therapy at this time. 10/29/19 14:44 Patient is 64-year-old male with history of diabetes hypertension hyperlipidemia he is retired has been working outside [employer] during the summertime as well as [employer] work patient states that he has been working hours and not drinking enough fluids however presented emergency department with a complaint of right in upper lower extremity weakness and difficulty with ambulation, however patient's symptoms were transient in nature and resolved by the time patient was at the ER, to further evaluate patient had a MRI of the brain which is essentially normal as well as carotid ultrasound did not show any stenosis suggesting TIA however patient had MRI of the cervical spine tests concern cervical arthritis, will have a PT OT evaluate the patient and patient is seen by neurologist, upon arrival to the emergency depart patient BUN was 80 and creatinine 5.1 suggesting acute renal failure with severe dehydration, bilateral kidney ultrasound did not show any hydronephrosis or atrophy, patient is seen by assurance manager suspect dehydration patient is being hydrated kidney function is improving will continue to monitor, patient also states that he has been dieting on keto diet and has lost 47 lb recently. (2) Acute renal failure: Qualifiers: Acute renal failure type: unspecified Qualified Code(s): N17.9 - Acute kidney failure, unspecified Code(s): N17.9 - Acute kidney failure, unspecified Status: Acute Assessment and Plan: The patient stated that he has been on a keto diet. I did order renal ultrasound and some urine specimens. Continue with IV fluids and recheck BMP tomorrow. Hold metformin and lisinopril. (3) Dehydration: Code(s): E86.0 - Dehydration Status: Acute Assessment and Plan: Continue to hydrate. (4) Hypercholesterolemia: Code(s): E78.00 - Pure hypercholesterolemia, unspecified Status: Acute Assessment and Plan: Continue with atorvastatin (5) Diabetes: Code(s): E11.9 - Type 2 diabetes mellitus without complications Status: Acute Assessment and Plan: Continue with Accu-Cheks AC and HS. Continue with glimepiride and hold metformin. (6) Hypertension: Qualifiers: Hypertension type: unspecified Qualified Code(s): I10 - Essential (primary) hypertension Code(s): I10 - Essential (primary) hypertension Status: Acute Assessment and Plan: P.r.n. hydralazine and continue with Coreg. (7) STACEY on CPAP: Code(s): G47.33 - Obstructive sleep apnea (adult) (pediatric); Z99.89 - Dependence on other enabling machines and devices Status: Chronic Assessment and Plan: I did order for the patient to have CPAP but his is going to bring his intense is more comfortable for him. DS: Summary Hospital Course Reason for hospitalization: Faustino Velásquez is a 64 year old male has a history of diabetes and hypertension. 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 The patient is on a keto diet and says that he drinks 100 oz of water every
--- NOTE | 2019-10-30 15:31 | PC.NURSE ---
CALLED DR NEGRON'S OFFICE AND LET KNOW THAT PT WAS DISCHARGING, HIS OFFICE SAID THEY WILL NEED TO TALK WITH DR VICK.
[2019-10-31 04:16] LABS: Osmolality, Urine 564 mOsm/kg (50-1200)
[2019-10-31 18:21] LABS: Calculated Total (E+NE) 15 mcg/g cr (9-74); Creatinine, Urine 40 mg/dL (20-320); Dopamine, Urine 105 mcg/g cr (40-390); Norepinephrine, Urine 15 mcg/g cr (7-65)
== END 2019-10-30 15:30 | disposition home or self-care (01) | DRG 69 ==
LOC: ANHED 11:53 → ANH3MEDSUR 10-29 12:52
PROVIDERS: Nurse Practitioner; Admitting Provider Internal Medicine; Emergency Provider Emergency Medicine; PCP Internal Medicine; Visit Provider Family Medicine
DX: G45.9 Transient cerebral ischemic attack, unspecified (principal); N17.9 Acute kidney failure, unspecified; E86.0 Dehydration; I10 Essential (primary) hypertension; G47.33 Obstructive sleep apnea (adult) (pediatric); M47.812 Spondylosis without myelopathy or radiculopathy, cervical region; Z99.89 Dependence on other enabling machines and devices
CPT/HCPCS: 36415; 70450; 70551; 72141; 76775; 80053; 80069; 80307; 81003; 82384; 82550; 82570; 82575; 82607; 82746; 83036; 83735; 83935; 84100; 84105; 84133; 84300; 84443; 84484; 85025; 85027; 85610; 86140; 86850; 86900; 86901; 93005; 93306; 93880; 96360; 96375; 99285; A9270; J7030

== ENCOUNTER 2021-03-22 10:55 | Outpatient (CLI) | payer OTHER, MEDICARE, SELFPAY ==
--- NOTE | 2021-03-22 11:00 | ECG_ITS ---
Measurements Intervals [place] Rate: 55 P: 41 MI: 151 QRS: 12 QRSD: 113 T: 24 QT: 415 QTc: 397 Interpretive Statements SINUS BRADYCARDIA INCOMPLETE RIGHT BUNDLE BRANCH BLOCK BORDERLINE R WAVE PROGRESSION, ANTERIOR LEADS BASELINE ARTIFACT- V4-V5 BORDERLINE ECG Electronically Signed On 03-22-2021 11:15:37 TOP FRAME MAKER by Jovanny Mederos D.O.
== END 2021-03-22 10:56 | disposition home or self-care (01) ==
LOC: ANHSURGERY 10:59
PROVIDERS: PCP Internal Medicine; Visit Provider Surgery
DX: Z01.818 Encounter for other preprocedural examination (principal); E78.00 Pure hypercholesterolemia, unspecified; K40.90 Unilateral inguinal hernia, without obstruction or gangrene, not specified as recurrent
CPT/HCPCS: 36415; 86850; 86900; 86901; 93005

== ENCOUNTER 2021-03-25 02:29 | Day surgery (SDC) | payer OTHER, MEDICARE, SELFPAY ==
[2021-03-16 10:40] VITALS: BMI 30.7
--- NOTE | 2021-03-16 11:09 | PC.NURSE ---
Report to the Outpatient Waiting Room, entrance under the green pavilion located off [facility], at time _1000__ on date _03/25/21_. OR Time: _1200__. - You and your visitor will be asked a series of questions to screen for COVID 19 for your protection. - A mask is required within the hospital. - Only one visitor is allowed at this time. Patient visitors will be guided where to wait when not with patient. Preoperative COVID Testing Requirements: No COVID Test needed if: (proof is required; if not received patient will have Rapid Test prior to entry) - Patient has received COVID Vaccine at least 14 days prior to procedure date or - Patient has positive COVID test result within last 90 days of surgery date. COVID Test needed if above criteria is not met If not COVID vaccinated a COVID test must be conducted within 72 hours of surgery and patient is asked to isolate self from time of testing until procedure. You will go to the [facility] for your COVID testing. The [facility] site is located at the corner of [address] [facility]. You will only be called if COVID results are positive and your surgeon may reschedule your elective surgery date. Patients may have clear liquids (water, carbonated beverages, clear teas, apple juice) until 3 hours prior to surgery (0900 AM) with a maximum of 20 ounces. - No food from midnight until time of surgery - Infants may have breast milk until 4 hours before surgery, infant formula 6 hours prior to surgery. - Children will be allowed to drink immediately following surgery. If applicable, please bring a bottle or sippy cup to assist with drinking. Juice, water, soda, and popsicles are readily available. For infants on formula, please bring formula the day of surgery. Pacifiers are allowed. Take the following medications with a SIP of water the morning of surgery: _CARVEDILOL, PAIN PILL IF NEEDED Medications to discontinue per physician ____N/A Date to take last dose Please no make-up, nail indonesian, hairspray, perfume, deodorant, or body powder the day of surgery. No jewelry (including any body piercings) or valuables the day of surgery, leave them at home. Please take a shower or bath the night before, or the morning of, surgery with an antibacterial soap. Wear comfortable, loose fitting clothing. Children are encouraged to wear pajamas. - Jewelry must be removed prior to entering the operating room. Rings and piercings that are not removed may be cut off. - The hospital will not accept responsibility for valuables. - Please leave all valuables, including medications, at home the day of surgery. If you are going home after surgery, a licensed hog driver must drive you home. - NO public transportation without another adult. - We recommend that an adult stay with you for 24 hours following discharge. - We also recommend that you do not drive, make important decision, drink alcoholic beverages, or take any drugs that were not prescribed by your health care provider for at least 24 hours after your discharge time. For Pediatric surgeries, we recommend two adults accompany the child home (only one inside the building at this time). Follow any additional instructions given to you from your surgeon. HECTOR CHERY AM OF SURGERY Telephone instructions given to ___PT and asked if any additional questions and then verbalized understanding. Patient advised to call surgeon office or pre surgery nurse liaison [phone] if any additional questions.
--- NOTE | 2021-03-24 14:53 | WPDANESEPPF ---
Anes - Initial Pre Proc Eval Procedure: Operation Date: 03/25/21 12:00 Proposed Procedures p Robotic Assisted Laparoscopic Left Inguinal Hernia Repair with Mesh - Mary Bernard MD Date/Time: 03/24/21 14:53 Surgeon: Mary Bernard MD Pre Op Diagnosis: left inguinal hernia Patient Data Age: 65 Gender: M Height: 1.68 m Weight: 86.36 kg Allergies Allergy/AdvReac Type Severity Reaction Status Date / Time atorvastatin AdvReac Mild Abdominal Verified 03/25/21 11:13 Pain latex AdvReac Itching Verified 03/25/21 11:13 Home Medications Medication Instructions Recorded Confirmed Type aspirin [Aspir-81] 81 mg QAM 10/28/19 03/16/21 History atorvastatin 40 mg PO HS 10/28/19 03/16/21 History carvedilol 25 mg PO Q12H 10/28/19 03/16/21 History hydrocodone-acetaminophen 1 tablet BID PRN 03/16/21 03/16/21 History Patient hx anesthesia problems: none Family hx anesthesia problems: none Results Review: All pre-operative results and documents have been reviewed as part of the pre-operative evaluation. [facility] Past Medical History Medical History (Updated 03/25/21 @ 11:21 by Enrico Mace DO) CAD (coronary artery disease) Carpal tunnel syndrome Cervical spondylosis Hypercholesterolemia Peripheral neuropathy TIA (transient ischemic attack) Surgical History Surgical History (Updated 02/16/21 @ 10:30 by Goldie Ramey) H/O bilateral cataract extraction One I approximately 2-3 years ago and the other eye in February of last year. 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 He has a set of twin boys. He wishes to be a full code. 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 The patient stated he tried smoking wants but did continue to smoke. No alcohol but occasionally smokes some marijuana. No illicit drug Smoking status: Never smoker Second hand tobacco smoke exposure: No Alcohol intake: never Drinks per week: 2 Substance use: never Substance use type: does not use Living arrangements: with family Gender identity (if verbalized by the patient): Male Spiritual care concerns: No Anes - Eval Final PreProcedure Day of Procedure 03/24/21 14:53 Patient weight: obese Heart: regular rate and rhythm Lungs: clear to auscultation and normal air movement Airway: Mallampati scale class III Neurological: alert and oriented Last oral intake: >/= 8 hours ASA classification: III Emergent: no Anesthetic plan: proceed Anesthesia type and monitoring: general ETT and standard monitoring Results Review: All pre-operative results and documents have been reviewed as part of the pre-operative evaluation. Informed Consent: The patient's anesthetic plan and its attendant risks and benefits were discussed with the patient/family/POA. Questions were solicited and answers provided to the satisfaction of the patient/family/POA.
[2021-03-25] VITALS (8 sets, daily range): BP systolic 153–169; BP diastolic 69–88; PULSE 53–69; RESP 10–18; TEMP 36.7; O2SAT 96–100
[2021-03-25] MEDS: LACTATED RINGERS 1,000 ML 30 ML IV CONT ×2 (10:36→14:08)
[2021-03-25] MEDS: KETOROLAC 15 MG/ML VIAL (*BKC) IV PUSH (10:36)
--- NOTE | 2021-03-25 11:54 | PM.IMHP ---
H&P: HPI History of Present Illness Date/Time: 03/25/21 11:54 Patient first noticed a bulge in his left groin almost six months ago. It has been asymptomatic until recently, after doing yard work, he developed increase in size and associated discomfort. Bulge is reducible why lying down, he is urinating and having normal BMs without issue. Pt also c/o of some soreness in right groin recently. Chief Complaint: left inguinal hernia Review of Systems Review of Systems: All systems reviewed & are unremarkable except as noted in HPI and below PMFSH Past Medical History Medical History CAD (coronary artery disease) Carpal tunnel syndrome Cervical spondylosis Hypercholesterolemia Peripheral neuropathy TIA (transient ischemic attack) Surgical History Surgical History H/O bilateral cataract extraction One I approximately 2-3 years ago and the other eye in February of last year. 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 He has a set of twin boys. He wishes to be a full code. 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 The patient stated he tried smoking wants but did continue to smoke. No alcohol but occasionally smokes some marijuana. No illicit drug Smoking status: Never smoker Second hand tobacco smoke exposure: No Alcohol intake: never Drinks per week: 2 Substance use: never Substance use type: does not use Living arrangements: with family Gender identity (if verbalized by the patient): Male Spiritual care concerns: No Meds Home Medications and Allergies Home Medications Medication Instructions Recorded Confirmed Type aspirin [Aspir-81] 81 mg QAM 10/28/19 03/25/21 History atorvastatin 40 mg PO HS 10/28/19 03/25/21 History carvedilol 25 mg PO Q12H 10/28/19 03/25/21 History hydrocodone-acetaminophen 1 tablet BID PRN 03/16/21 03/25/21 History Allergies Allergy/AdvReac Type Severity Reaction Status Date / Time atorvastatin AdvReac Mild Abdominal Verified 03/25/21 11:13 Pain latex AdvReac Itching Verified 03/25/21 11:13 Vital Signs Vital Signs - 24 hr 03/25/21 11:15 Temperature 36.7 C Pulse Rate 62 Respiratory Rate 18 Blood Pressure 159/69 H Pulse Oximetry 97 Exam Const: General: cooperative, comfortable and no acute distress Nutritional Appearance: obese Orientation/consciousness: patient oriented x3 Limitations: no limitations Resp: Effort & Inspection: normal respiratory effort Auscultation: clear to auscultation bilaterally Cardio: Rate: regular rate Rhythm: regular rhythm GI: Inspection: normal to inspection and non-distended GI Palp: Yes Soft to palpation, No Tenderness to palpation present (GI), No Guarding due to palpation present (GI) and No Rigid due to palpation Other: reducible LIH, weakness on R no obvious defect Assessment and Plan Assessment and plan (1) Inguinal hernia without obstruction or gangrene: Code(s): K40.90 - Unilateral inguinal hernia, without obstruction or gangrene, not specified as recurrent Status: Acute Assessment and Plan: will setup for robotic assisted repair with mesh on left side, will check right side
--- NOTE | 2021-03-25 11:56 | WPDHPUPDATE1 ---
History and Physical Update Update Date/Time: 03/25/21 11:56 History and Physical has been reviewed, including an updated exam of the patient. There are NO changes in the patient's condition. Risks, benefits, and alternatives have been discussed and questions answered. Patient agrees to proceed with procedure.
[2021-03-25] MEDS: ceFAZolin 2 GM/D5W 50 ML 2 GM/50 ML BAG IVPB (12:02)
--- NOTE | 2021-03-25 14:08 | W.PM.PROC2 ---
Procedure Note - Detailed Date of Procedure 03/25/21 Pre-op Diagnosis incarcerated left inguinal hernia Post-op Diagnosis same Procedure Performed Robotic assisted repair incarcerated left inguinal hernia with ProGrip mesh Surgeon Mary Bernard MD Anesthesia general Indications 65-year-old male presenting with left inguinal hernia Findings incarcerated left inguinal hernia with sigmoid colon Description of Procedure Patient was brought into the operating room and placed in the supine position. After adequate induction of general anesthesia, the patient was prepped and draped in normal sterile fashion. A time-out was then done to verify the patient's identity, as well as the procedure being performed. Began by making a 8 mm incision in the supraumbilical region, a Veress needle was then placed into the peritoneal cavity. CO2 gas was then insufflated and after adequate pneumoperitoneum was achieved, the Veress needle was removed. I then placed an 8 mm trocar through this incision. I then placed the laparoscope through this trocar site and under direct visualization placed 2 further 8 mm ports in the right and left mid abdomen. There was noted to be a dense adhesion in the periumbilical region from a previous hernia repair. There was noted to be small bowel adhesed to this area. I did attempt a lysis of adhesion in this area, however, small bowel adhesions were noted to be very dense. I was able to get enough clearance to value visualization to the left groin and a decision was made to abort further adhesiolysis. The [employer] robot was then docked to the 3 trocar sites. I then scrubbed out and went to the robotic console. Upon examining the pelvis, it was noted that the patient had a incarcerated left inguinal hernia with sigmoid colon. The right side was examined and a small hernia defect was noted. I was able to reduce the sigmoid with gentle retraction out of the hernia. Once this was done, I began by making a preperitoneal flap approximately 6 cm superior to the defect. This flap was carried medially past the umbilical ligaments in laterally to the transversalis. It then began dissection of my medial compartment taking this down to the pubic tubercle. I then began the lateral dissection taking this down to the transversalis fascia. Once these compartments were achieved, I began dissection around the cord structures. It was noted at this point that the patient had a large indirect inguinal hernia. Using careful dissection, was able to reduce indirect hernia sac off the cord structures. Once this was adequately done, I went ahead and placed a 15 x 10 piece of Pro Spreader Box Operator mesh into the abdominal cavity. The mesh was carefully positioned, centering the center of the mesh over the indirect defect. Once this was done, was very satisfied with our repair. I then closed the peritoneal flap with a running 2.0 V Lock suture. I did not attempt to repair the right side given the poor visualization secondary to the small bowel adhesion. The abdomen was then desufflated, and all ports were removed. All incisions were then closed with the 4.0 monocryl suture. Dermabond was placed on each wound. The patient tolerated the procedure well, was extubated in the operating room postoperatively, and will now be transferred to the recovery room in stable condition. Implants 15 x 10 Pro Spreader Box Operator mesh Estimated Blood Loss 10 Drains No Packing No Pathology none sent Complications No immediate complications Condition stable Disposition PACU
[2021-03-25] MEDS: fentaNYL CITRATE INJ (*CRX) 100 MCG/2 ML VIAL 25 MCG IV PUSH (14:44)
--- NOTE | 2021-03-25 14:51 | SUR.PHASEI ---
1434: Simple mask removed.
== END 2021-03-25 16:30 | disposition home or self-care (01) ==
PROVIDERS: PCP Internal Medicine; Visit Provider Surgery
PROC: 8E0Y4CZ Robotic Assisted Procedure of Lower Extremity, Percutaneous Endoscopic Approach (ICD-10-PCS; CPT 49650; principal; 2021-03-25 12:00)
DX: K40.30 Unilateral inguinal hernia, with obstruction, without gangrene, not specified as recurrent (principal); I25.10 Atherosclerotic heart disease of native coronary artery without angina pectoris; E78.00 Pure hypercholesterolemia, unspecified; G62.9 Polyneuropathy, unspecified; M47.812 Spondylosis without myelopathy or radiculopathy, cervical region; Z86.73 Personal history of transient ischemic attack (TIA), and cerebral infarction without residual deficits; Z79.82 Long term (current) use of aspirin; Z95.5 Presence of coronary angioplasty implant and graft; E66.9 Obesity, unspecified; Z68.33 Body mass index [BMI] 33.0-33.9, adult
CPT/HCPCS: 49650; S2900; 36415; 86850; 86900; 86901; 93005; A9270; C1781; J0690; J1100; J1170; J1885; J2250; J2405; J2704; J2710; J3010; J7030; J7120

== ENCOUNTER 2025-04-10 08:00 | Outpatient (CLI) | payer MEDICARE, SELFPAY ==
--- NOTE | ~2025-04-10 | US_ITS ---
EXAMINATION: US right upper quadrant DATE: 04/10/2025 08:40 INDICATION: Abdominal pain TECHNIQUE: Multiple grayscale and Doppler ultrasound images of the abdomen were obtained. COMPARISON: None NOTE: Sonographic windows somewhat limited obscuring portions of the upper abdomen. FINDINGS: Incomplete visualization of the pancreas. Increased echotexture throughout the liver. Portal venous flow is hepatopedal. Gallbladder somewhat obscured but the wall appears thickened with internal debris. Common bile duct: 4 mm Visualized portions of the right kidney appear normal. No free fluid seen. No obvious masses identified on this limited exam. IMPRESSION: 1. Gallbladder wall thickening with probable cholelithiasis concerning for cholecystitis. 2. Exam is somewhat limited as noted above. Reviewed, dictated and finalized at location A. RENOVATOR IMPRESSION: 1. Gallbladder wall thickening with probable cholelithiasis concerning for chol ecystitis. 2. Exam is somewhat limited as noted above.
== END 2025-04-10 08:01 | disposition home or self-care (01) ==
PROVIDERS: PCP Internal Medicine; Visit Provider Internal Medicine
DX: K81.0 Acute cholecystitis (principal); R10.9 Unspecified abdominal pain
CPT/HCPCS: 76705

== ENCOUNTER 2025-04-21 12:15 | Outpatient (CLI) | payer MEDICARE, SELFPAY ==
--- NOTE | 2025-04-21 12:31 | ECG_ITS ---
Test Date: 2025-04-21 12:38:21 Measurements Intervals [place] Rate: 60 P: 26 VA: 178 QRS: 31 QRSD: 105 T: 4 QT: 406 QTc: 406 Interpretive Statements SINUS RHYTHM LEFT ATRIAL ENLARGEMENT DELAYED PRECORDIAL R/S TRANSITION CONSIDER INFERIOR INFARCT, AGE INDETERMINATE BASELINE ARTIFACT- V1, V5 ABNORMAL ECG No previous ECG available for comparison Electronically Signed On 04-21-2025 21:52:49 TRAINING ASSOCIATE by Jovanny Mederos D.O.
--- OUTSIDE RECORDS SUMMARY | 2025-04-21 12:38 | XMS_ITS | Clinical Summary ---
Author Organization [facility] Address [address] [place] [address] Care Team Providers Care Electronic Gluing Machine Operator Name Role Phone Gonzalez Thomas MD Primary Care Provider Julianna Saleh RN Unavailable [phone] Brian Joe MD Unavailable Makenna Thomson RN Unavailable Mariann Griffin Unavailable Unavailable Allergies Active Allergy Reactions Criticality Noted Date Comments Atorvastatin Muscle pain Medium Upset stomach and cramping Medications aspirin 81 mg tablet Take 1 tablet (81 mg total) by mouth daily 9 Active HYDROcodone-ac etaminophen (NORCO) 5-325 mg per tablet Take 1 tablet by mouth 2 (two) times a day as needed for pain 4 Active atorvastatin (LIPITOR) 40 mg tablet TAKE 1 TABLET NIGHTLY 90 tablet 3 5 Active Additional Information Patient taking differently:40 mgoral 2 times daily, Reported on 10/29/2024 ezetimibe (ZETIA) 10 mg tablet Take 1 tablet (10 mg total) by mouth daily 90 tablet 3 5 11/30/19 26 Active lisinopriL (PRINIVIL,ZEST RIL) 10 mg tablet Take 1 tablet (10 mg total) by mouth daily 90 tablet 3 5 11/30/19 26 Active omeprazole (PriLOSEC) 20 mg capsule Take 1 capsule (20 mg total) by mouth 2 (two) times a day 180 capsule 3 5 Active carvediloL (COREG) 25 mg tablet Take 1 tablet (25 mg total) by mouth 2 (two) times a day with meals 180 tablet 3 5 Active carvediloL (COREG) 25 mg tablet Take 1 tablet (25 mg total) by mouth 2 (two) times a day with meals 180 tablet 3 5 03/25/20 25 Discontin ued(Reord er) Active Problems Problem Noted Date Diagnosed Date Coronary artery disease invo lving [place] coronary artery of [place] heart without angina pectoris 09/13/2018 Overview (05/13/2020): Status post PCI to the distal left circumflex coronary artery ion October 2008 with overlapping 2.5 x 8 mm and 2.5 x 13 mm Cypher drug-eluting stents. Stress test July 2011, stress echocardiogram negative for myocardial ischemia. 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 Palpitations 07/26/2011 Resolved Problems Problem Noted Date Diagnosed Date Resolved Date Congestive heart failure 12/04/2012 Family History Medical History Relation Name Comments Coronary artery disease Mother Fami ly history of coronary artery disease - (Added by TW Conv) Diabetes Mother Family history of diabetes mellitus (DM) - (Added by TW Conv) Heart failure Mother Family history of heart failure - (Added by TW Conv) Relation Name Status Comments Mother Social History Tobacco Use Types Packs/Day Years Used Date Smoking Tobacco: Never Smokeless Tobacco: Never Tobacco Cessation:Counseling Given: Not Answered Sex and Gender Information Value Date Recorded Sex Assigned at Not on file Legal 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 Gender Identity Male 12/05/2021 11:39 AM CDT Sexual Orientation Straight 12/05/2021 11 :39 AM CDT Last Filed Vital Signs Vital Sign Reading Time Taken Comments Blood Pressure 171/77 10/29/2024 8:41 AM CDT Pulse 62 10/29/2024 8:41 AM CDT Temperature 37.2 C (99 F) 10/29/2024 8:41 AM CDT Respiratory Rate - - Oxygen Saturation 95% 10/29/2024 8:41 AM CDT Inhaled Oxygen Concentration - - Weight 105.7 kg (233 lb) 10/29/2024 8:41 AM CDT Height 167.6 cm (5' 6) 10/29/2024 8:41 AM CDT Body Mass Index 37.61 10/29/2024 8:41 AM CDT Plan of Treatment Health Maintenance Due Date Last Done Comments Colon Cancer Screening-Colonoscopy 1955 Depression Screening 1955 Fall Risk Assessment 1955 Hepatitis C Screening 1955 DTaP/Tdap/Td Vaccine (1 - Tdap) 1964 Hepatitis B Screening 1971 Zoster Vaccine (1 of 2) 2003 Well Visit 65+ 2018 Pneumococcal vaccine 65+ (2 of 2 - PCV20 or PCV21) 11/12/2023 11/11/2022 Covid-19 Vaccine (6 - 2024-2 6 season) 2024 03/24/2023, 01/11/2022, 03/19/2021, Additional history exists Influenza Vaccine (#1) 2024 , 11/11/2022, 01/24/2020, Additional history exists Insurance MEDICARE [facility] OPEN ACCESS MEDICARE Care Teams Electronic Gluing Machine Operator Relationship Specialty Start Date End Date Gonzalez Thomas MD PCP - General 09/05/16 Julianna Saleh RN [address] [facility] [address] [place] [address] Heart Failure Coordinator Cardiology 12/19/17 Brian Joe MD [address] [facility] [address] [place] [address] Agriculture Science Teacher Transplant 12/19/17 Makenna Thomson, RN Registered Nurse Laundry Aide 05/07/20 Mariann Griffin Primary Drill Punch Operator 01/09/25
--- OUTSIDE RECORDS SUMMARY | 2025-04-21 12:38 | XMS_ITS | Encounter Summary ---
Author Organization [facility] Address [address] [place] [address] Phone Care Team Providers Care Shoe Parts Molder Name Role Phone Gonzalez Thomas MD Primary Care Provider Julianna Saleh RN Unavailable [phone] Brian Joe MD Unavailable [phone] Makenna Thomson RN Unavailable [phone] Mariann Griffin Unavailable Unavailable Encounter Details Date Type Department Care Team (Latest Contact Info) Description 09/20/2024 Orders Only [facility] Scanning, Provider Social History Tobacco Use Types Packs/Day Years Used Date Smoking Tobacco: Never Smokeless Tobacco: Never Sex and Gender Information Value Date Recorded Sex Assigned at Not on file Legal 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 Gender Identity Male 12/05/2021 11:39 AM CDT Sexual Orientation Straight 12/05/2021 11 :39 AM CDT documented as of this encounter Plan of Treatment Not on file documented as of this encounter Procedures Procedure Name Priority Date/Time Associated Diagnosis Comments SCAN - LABS 09/20/2024 documented in this encounter Results * SCAN - LABS (09/20/2024) us Provider Scanning Final Result documented in this encounter Visit Diagnoses Not on filedocumented in this encounter Care Teams Shoe Parts Molder Relationship Specialty Start Date End Date Gonzalez Thomas MD PCP - General 09/05/16 Julianna Saleh, THOMAS [address] [id number] Heart Failure Coordinator Cardiology 12/19/17 Brian Joe MD [address] [address] [place] Mechanic Transplant 12/19/17 Makenna Thomson RN Registered Nurse Filler Mixer 05/07/20 Mariann Griffin Primary Agronomy Supervisor 01/09/25 documented as of this encounter
[2025-04-21 13:21] LABS: Alanine Aminotransferase 17 U/L (6-50); Albumin Level 3.8 g/dL (3.5-5.1); Alkaline Phosphatase 97 U/L (38-126); Amylase 82 U/L (30-110); Aspartate Amino Transferase 19 U/L (17-59); Bilirubin,Total 0.6 mg/dL (0.2-1.3); Lipase 55 U/L (23-300); Total Protein 7.0 g/dL (6.3-8.2)
== END 2025-04-21 12:16 | disposition home or self-care (01) ==
PROVIDERS: PCP Internal Medicine; Visit Provider Surgery
DX: K80.10 Calculus of gallbladder with chronic cholecystitis without obstruction (principal); I10 Essential (primary) hypertension; Z01.818 Encounter for other preprocedural examination; R94.31 Abnormal electrocardiogram [ECG] [EKG]
CPT/HCPCS: 36415; 80076; 82150; 83690; 93005